=== PATIENT | male | born 1945 | race Two or more races ===

== ENCOUNTER 2017-11-05 09:51 | Outpatient (CLI) | payer OTHER ==
[~2017-11-05 09:51] MED LIST: TRAMADOL HCL-AP1 TAB PO
== END 2017-11-05 10:15 | disposition home or self-care (01) ==
LOC: LAB 09:51
DX: E04.8 Other specified nontoxic goiter (principal); E04.1 Nontoxic single thyroid nodule; E05.90 Thyrotoxicosis, unspecified without thyrotoxic crisis or storm; D68.0 Von Willebrand disease; D51.0 Vitamin B12 deficiency anemia due to intrinsic factor deficiency; D51.1 Vitamin B12 deficiency anemia due to selective vitamin B12 malabsorption with proteinuria; D68.8 Other specified coagulation defects; R63.4 Abnormal weight loss; D50.8 Other iron deficiency anemias; D51.8 Other vitamin B12 deficiency anemias; I10 Essential (primary) hypertension; E03.8 Other specified hypothyroidism

== ENCOUNTER 2018-01-12 10:45 | Outpatient (CLI) | payer OTHER | END 2018-01-12 10:50 | disposition home or self-care (01) | LOC: LAB 10:45 | DX: E05.90 Thyrotoxicosis, unspecified without thyrotoxic crisis or storm (principal); E04.8 Other specified nontoxic goiter; E04.1 Nontoxic single thyroid nodule ==

== ENCOUNTER 2018-01-30 08:20 | Outpatient (CLI) | payer OTHER | END 2018-01-30 09:00 | disposition home or self-care (01) | LOC: NUCLEAR 08:20 | DX: E05.80 Other thyrotoxicosis without thyrotoxic crisis or storm (principal) | CPT/HCPCS: 78012; A9531 ==

== ENCOUNTER 2018-11-30 09:08 | Outpatient (CLI) | payer OTHER | END 2018-11-30 11:28 | disposition home or self-care (01) | LOC: LAB 09:08 | DX: E05.90 Thyrotoxicosis, unspecified without thyrotoxic crisis or storm (principal); E04.1 Nontoxic single thyroid nodule; E04.8 Other specified nontoxic goiter; D68.0 Von Willebrand disease; D51.0 Vitamin B12 deficiency anemia due to intrinsic factor deficiency; D51.1 Vitamin B12 deficiency anemia due to selective vitamin B12 malabsorption with proteinuria; D68.8 Other specified coagulation defects; N40.1 Benign prostatic hyperplasia with lower urinary tract symptoms; R63.4 Abnormal weight loss; E06.5 Other chronic thyroiditis; D50.8 Other iron deficiency anemias; D51.8 Other vitamin B12 deficiency anemias; I10 Essential (primary) hypertension; E03.8 Other specified hypothyroidism ==

== ENCOUNTER 2019-04-04 08:03 | Outpatient (CLI) | payer OTHER | END 2019-04-04 08:09 | disposition home or self-care (01) | LOC: LAB 08:03 | DX: D51.0 Vitamin B12 deficiency anemia due to intrinsic factor deficiency (principal); D68.0 Von Willebrand disease; D51.1 Vitamin B12 deficiency anemia due to selective vitamin B12 malabsorption with proteinuria; E05.90 Thyrotoxicosis, unspecified without thyrotoxic crisis or storm; E04.1 Nontoxic single thyroid nodule; D68.8 Other specified coagulation defects; N40.1 Benign prostatic hyperplasia with lower urinary tract symptoms; R63.4 Abnormal weight loss; E06.5 Other chronic thyroiditis; R97.0 Elevated carcinoembryonic antigen [CEA] ==

== ENCOUNTER 2019-08-01 09:20 | Outpatient (CLI) | payer OTHER | END 2019-08-01 09:30 | disposition home or self-care (01) | LOC: LAB 09:20 | DX: D50.8 Other iron deficiency anemias (principal); E03.8 Other specified hypothyroidism; E78.2 Mixed hyperlipidemia; I11.9 Hypertensive heart disease without heart failure; E56.8 Deficiency of other vitamins; N39.0 Urinary tract infection, site not specified; Z12.11 Encounter for screening for malignant neoplasm of colon; E55.9 Vitamin D deficiency, unspecified; N19 Unspecified kidney failure; E11.9 Type 2 diabetes mellitus without complications; R80.8 Other proteinuria; C18.0 Malignant neoplasm of cecum; K92.1 Melena; E05.90 Thyrotoxicosis, unspecified without thyrotoxic crisis or storm; E04.8 Other specified nontoxic goiter; D68.0 Von Willebrand disease; D51.0 Vitamin B12 deficiency anemia due to intrinsic factor deficiency; D51.1 Vitamin B12 deficiency anemia due to selective vitamin B12 malabsorption with proteinuria; E04.1 Nontoxic single thyroid nodule; D68.8 Other specified coagulation defects; N40.1 Benign prostatic hyperplasia with lower urinary tract symptoms; R63.4 Abnormal weight loss; E06.4 Drug-induced thyroiditis; E06.5 Other chronic thyroiditis; K90.89 Other intestinal malabsorption ==

== ENCOUNTER → 2020-01-15 10:16 | Outpatient (CLI) | payer OTHER | END | disposition home or self-care (01) | LOC: LAB 10:16 | DX: D68.0 Von Willebrand disease (principal); I10 Essential (primary) hypertension; D68.8 Other specified coagulation defects; R97.0 Elevated carcinoembryonic antigen [CEA]; R97.8 Other abnormal tumor markers; R97.20 Elevated prostate specific antigen [PSA]; D50.8 Other iron deficiency anemias; D51.0 Vitamin B12 deficiency anemia due to intrinsic factor deficiency; D51.1 Vitamin B12 deficiency anemia due to selective vitamin B12 malabsorption with proteinuria; E05.90 Thyrotoxicosis, unspecified without thyrotoxic crisis or storm; E04.1 Nontoxic single thyroid nodule; N40.1 Benign prostatic hyperplasia with lower urinary tract symptoms; R63.4 Abnormal weight loss; E06.5 Other chronic thyroiditis ==

== ENCOUNTER 2020-01-31 09:46 | Outpatient (CLI) | payer OTHER | END 2020-01-31 09:57 | disposition home or self-care (01) | LOC: LAB 09:46 | PROVIDERS: ATTEND Internal Medicine Geriatric Medicine | DX: D50.8 Other iron deficiency anemias (principal); E03.8 Other specified hypothyroidism; E78.2 Mixed hyperlipidemia; I11.9 Hypertensive heart disease without heart failure; E56.8 Deficiency of other vitamins; N39.0 Urinary tract infection, site not specified; Z12.11 Encounter for screening for malignant neoplasm of colon; E55.9 Vitamin D deficiency, unspecified; E11.9 Type 2 diabetes mellitus without complications; R80.8 Other proteinuria; C18.0 Malignant neoplasm of cecum; N19 Unspecified kidney failure; R19.5 Other fecal abnormalities ==

== ENCOUNTER 2020-02-01 10:11 | Outpatient (CLI) | payer OTHER | END 2020-02-01 15:00 | disposition home or self-care (01) | LOC: LAB 10:11 | PROVIDERS: ATTEND Internal Medicine Geriatric Medicine | DX: D50.8 Other iron deficiency anemias (principal); E03.8 Other specified hypothyroidism; E78.2 Mixed hyperlipidemia; I11.9 Hypertensive heart disease without heart failure; E56.8 Deficiency of other vitamins; N39.0 Urinary tract infection, site not specified; Z12.11 Encounter for screening for malignant neoplasm of colon; E55.9 Vitamin D deficiency, unspecified; N19 Unspecified kidney failure; E11.9 Type 2 diabetes mellitus without complications; R80.8 Other proteinuria; K92.1 Melena ==

== ENCOUNTER → 2020-05-20 08:29 | Outpatient (CLI) | payer OTHER | END | disposition home or self-care (01) | LOC: LAB 08:29 | PROVIDERS: ATTEND Internal Medicine Geriatric Medicine | DX: D50.8 Other iron deficiency anemias (principal); E03.8 Other specified hypothyroidism; E78.2 Mixed hyperlipidemia; I11.9 Hypertensive heart disease without heart failure; E56.8 Deficiency of other vitamins; N39.0 Urinary tract infection, site not specified; Z12.11 Encounter for screening for malignant neoplasm of colon; E55.9 Vitamin D deficiency, unspecified; N19 Unspecified kidney failure; E11.9 Type 2 diabetes mellitus without complications; R80.8 Other proteinuria; K92.1 Melena ==

== ENCOUNTER → 2020-07-14 15:46 | Outpatient (CLI) | payer OTHER | END | disposition home or self-care (01) | LOC: LAB 15:46 | PROVIDERS: ATTEND Internal Medicine Geriatric Medicine | DX: D50.8 Other iron deficiency anemias (principal); E56.8 Deficiency of other vitamins; Z20.828 Contact with and (suspected) exposure to other viral communicable diseases; Z03.818 Encounter for observation for suspected exposure to other biological agents ruled out; Z11.59 Encounter for screening for other viral diseases; E03.8 Other specified hypothyroidism; E78.2 Mixed hyperlipidemia; I11.9 Hypertensive heart disease without heart failure; N39.0 Urinary tract infection, site not specified; Z12.11 Encounter for screening for malignant neoplasm of colon; E55.9 Vitamin D deficiency, unspecified; N19 Unspecified kidney failure; E11.9 Type 2 diabetes mellitus without complications; R80.8 Other proteinuria; C18.0 Malignant neoplasm of cecum; K92.1 Melena ==

== ENCOUNTER 2020-09-01 10:17 | Outpatient (CLI) | payer OTHER | END 2020-09-01 11:17 | disposition home or self-care (01) | LOC: LAB 10:17 | PROVIDERS: ATTEND Internal Medicine Hematology & Oncology | DX: D50.8 Other iron deficiency anemias (principal); I10 Essential (primary) hypertension; D51.8 Other vitamin B12 deficiency anemias; E55.9 Vitamin D deficiency, unspecified; E03.8 Other specified hypothyroidism; D68.8 Other specified coagulation defects; R97.0 Elevated carcinoembryonic antigen [CEA]; R97.8 Other abnormal tumor markers; D68.0 Von Willebrand disease; D51.0 Vitamin B12 deficiency anemia due to intrinsic factor deficiency; D51.1 Vitamin B12 deficiency anemia due to selective vitamin B12 malabsorption with proteinuria; E05.90 Thyrotoxicosis, unspecified without thyrotoxic crisis or storm; E04.1 Nontoxic single thyroid nodule; N40.1 Benign prostatic hyperplasia with lower urinary tract symptoms; R63.4 Abnormal weight loss; E06.5 Other chronic thyroiditis; R97.20 Elevated prostate specific antigen [PSA] ==

== ENCOUNTER 2020-11-24 07:09 | Outpatient (CLI) | payer OTHER | END 2020-11-24 07:16 | disposition home or self-care (01) | LOC: SONOGRAMA 07:09 → MAMO-SONO 07:15 → SONOGRAMA 07:16 | PROVIDERS: ATTEND Internal Medicine Gastroenterology | DX: R10.13 Epigastric pain (principal); Q61.00 Congenital renal cyst, unspecified; D51.8 Other vitamin B12 deficiency anemias ==

== ENCOUNTER 2021-01-31 07:46 | Outpatient (CLI) | payer OTHER | END 2021-01-31 08:19 | disposition home or self-care (01) | LOC: LAB 07:46 | PROVIDERS: ATTEND Internal Medicine Hematology & Oncology | DX: D50.8 Other iron deficiency anemias (principal); N40.1 Benign prostatic hyperplasia with lower urinary tract symptoms; D51.0 Vitamin B12 deficiency anemia due to intrinsic factor deficiency; D51.1 Vitamin B12 deficiency anemia due to selective vitamin B12 malabsorption with proteinuria; E55.9 Vitamin D deficiency, unspecified; E03.8 Other specified hypothyroidism; D68.0 Von Willebrand disease; R97.0 Elevated carcinoembryonic antigen [CEA]; R97.20 Elevated prostate specific antigen [PSA]; R63.4 Abnormal weight loss; E05.90 Thyrotoxicosis, unspecified without thyrotoxic crisis or storm; E04.1 Nontoxic single thyroid nodule; E06.5 Other chronic thyroiditis ==

== ENCOUNTER → 2021-04-06 09:52 | Outpatient (CLI) | payer OTHER | END | disposition home or self-care (01) | LOC: LAB 09:52 | PROVIDERS: ATTEND Internal Medicine Geriatric Medicine | DX: D50.8 Other iron deficiency anemias (principal); E03.8 Other specified hypothyroidism; E78.2 Mixed hyperlipidemia; I11.9 Hypertensive heart disease without heart failure; E56.8 Deficiency of other vitamins; N39.0 Urinary tract infection, site not specified; Z12.11 Encounter for screening for malignant neoplasm of colon; E55.9 Vitamin D deficiency, unspecified; N19 Unspecified kidney failure; E11.9 Type 2 diabetes mellitus without complications; R80.8 Other proteinuria; K92.1 Melena ==

== ENCOUNTER → 2021-07-07 | Outpatient (CLI) | payer OTHER | END | disposition home or self-care (01) | LOC: NUCLEAR 07:00 | PROVIDERS: ATTEND Internal Medicine Cardiovascular Disease | DX: I50.1 Left ventricular failure, unspecified (principal); I25.9 Chronic ischemic heart disease, unspecified | CPT/HCPCS: 78452; 93017; A9500 ==

== ENCOUNTER → 2021-07-09 09:16 | Outpatient (CLI) | payer OTHER | END | disposition home or self-care (01) | LOC: LAB 09:16 | PROVIDERS: ATTEND Internal Medicine Hematology & Oncology | DX: D50.8 Other iron deficiency anemias (principal); R79.89 Other specified abnormal findings of blood chemistry; I10 Essential (primary) hypertension; R74.02 Elevation of levels of lactic acid dehydrogenase [LDH]; K76.89 Other specified diseases of liver; D51.8 Other vitamin B12 deficiency anemias; E55.9 Vitamin D deficiency, unspecified; E03.8 Other specified hypothyroidism; D68.8 Other specified coagulation defects; R97.0 Elevated carcinoembryonic antigen [CEA]; R97.8 Other abnormal tumor markers; R97.20 Elevated prostate specific antigen [PSA]; D68.0 Von Willebrand disease; D51.0 Vitamin B12 deficiency anemia due to intrinsic factor deficiency; D51.1 Vitamin B12 deficiency anemia due to selective vitamin B12 malabsorption with proteinuria; E05.90 Thyrotoxicosis, unspecified without thyrotoxic crisis or storm; E04.1 Nontoxic single thyroid nodule; N40.1 Benign prostatic hyperplasia with lower urinary tract symptoms; R63.4 Abnormal weight loss; E06.5 Other chronic thyroiditis; E78.2 Mixed hyperlipidemia; E56.8 Deficiency of other vitamins; N39.0 Urinary tract infection, site not specified; Z12.11 Encounter for screening for malignant neoplasm of colon; N28.89 Other specified disorders of kidney and ureter; K92.1 Melena; C18.8 Malignant neoplasm of overlapping sites of colon; R80.8 Other proteinuria ==

== ENCOUNTER 2021-11-17 10:50 | Outpatient (CLI) | payer OTHER | END 2021-11-17 10:54 | disposition home or self-care (01) | LOC: LAB 10:50 | PROVIDERS: ATTEND Internal Medicine Geriatric Medicine | DX: E03.9 Hypothyroidism, unspecified (principal); E05.90 Thyrotoxicosis, unspecified without thyrotoxic crisis or storm; E04.9 Nontoxic goiter, unspecified ==

== ENCOUNTER 2022-02-09 10:03 | Outpatient (CLI) | payer OTHER | END 2022-02-09 10:04 | disposition home or self-care (01) | LOC: LAB 10:03 | PROVIDERS: ATTEND Internal Medicine Hematology & Oncology | DX: D50.8 Other iron deficiency anemias (principal); R79.9 Abnormal finding of blood chemistry, unspecified; I10 Essential (primary) hypertension; R74.02 Elevation of levels of lactic acid dehydrogenase [LDH]; K76.89 Other specified diseases of liver; D51.8 Other vitamin B12 deficiency anemias; E55.9 Vitamin D deficiency, unspecified; E03.8 Other specified hypothyroidism; D68.8 Other specified coagulation defects; R97.0 Elevated carcinoembryonic antigen [CEA]; R97.8 Other abnormal tumor markers; R97.20 Elevated prostate specific antigen [PSA]; D68.0 Von Willebrand disease; D51.0 Vitamin B12 deficiency anemia due to intrinsic factor deficiency; D51.1 Vitamin B12 deficiency anemia due to selective vitamin B12 malabsorption with proteinuria; E05.90 Thyrotoxicosis, unspecified without thyrotoxic crisis or storm; E04.1 Nontoxic single thyroid nodule; D68.9 Coagulation defect, unspecified; N40.1 Benign prostatic hyperplasia with lower urinary tract symptoms; R63.4 Abnormal weight loss; E06.5 Other chronic thyroiditis; D53.8 Other specified nutritional anemias ==

== ENCOUNTER 2022-10-31 14:14 | Emergency (ER) | payer OTHER ==
[~2022-10-31] VITALS: Ht 177.8 cm; Wt 70.3 kg
[2022-10-31] MEDS ORDERED: ATORVASTATIN CA20 MG PO (14:16)
== END 2022-10-31 21:14 | disposition home or self-care (01) ==
LOC: ER 14:14
DX: R42 Dizziness and giddiness (principal); R41.82 Altered mental status, unspecified; N40.0 Benign prostatic hyperplasia without lower urinary tract symptoms; K21.9 Gastro-esophageal reflux disease without esophagitis

== ENCOUNTER 2024-12-31 09:55 | Outpatient (CLI) | payer OTHER ==
[~2024-12-31 09:55] MED LIST changes: +ATORVASTATIN CA20 MG PO
[2024-12-31 11:10] LABS: HEMATOCRIT 37.8 % (39.0-48.0); HEMOGLOBIN 12.3 g/dL (13-16.00); MEAN CELL VOLUME 76.5 fL (80.0-100.00); MEAN CORPUSCULAR HEMOGLOBIN 24.9 pg (27.00-32.0); MEAN CORPUSCULAR HGB CONC 32.5 g/dl (32.0-36.0); PLATELET COUNT 138 K/uL (150-450); RED BLOOD COUNT 4.94 M/uL (4.00-6.00); RED CELL DISTRIBUTION WIDTH 14.8 % (11.5-14.5)
[2024-12-31 11:36] LABS: INR 1.02; PARTIAL THROMBOPLASTIN TIME 31.7 SECONDS (22.0-34.0); PROTHROMBIN TIME 11.1 SECONDS (9.0-11.5)
[2024-12-31 11:39] LABS: COL EPI 136 SECONDS (82-175)
[2024-12-31 12:28] LABS: ALBUMIN 3.7 gm/dL (3.4-5.0); BILIRUBIN TOTAL 0.85 mg/dL (0.3-1.2); CALCIUM 9.4 mg/dL (8.5-10.1); CREATININE SERUM 1.35 mg/dL (0.70-1.30); GFR 50.98; GLOBULINA 3.2 G/DL (2.4-3.5); POTASSIUM 4.05 mEq/L (3.5-5.1); TOTAL PROTEIN 6.9 gm/dL (6.4-8.2)
[2024-12-31 13:30] LABS: FOLIC ACID 19.84 ng/ml (4.78-20)
[2025-01-01 08:20] LABS: MANUAL PLATELET COUNT 220
[2025-01-01 08:29] LABS: PLATELET ESTIMATE NORMAL (NORMAL)
[2025-01-02 13:08] LABS: FACTOR VIII ACTIVITY 94 % (56-140); VON WILLERBRAND ACTIVITY 73 % (50-200); VON WILLERBRAND ANTIGEN 107 % (50-200)
== END 2024-12-31 10:09 | disposition home or self-care (01) ==
LOC: LAB 09:55
PROVIDERS: ATTEND Internal Medicine Hematology & Oncology
DX: D68.01 Von Willebrand disease, type 1 (principal); D51.0 Vitamin B12 deficiency anemia due to intrinsic factor deficiency; D51.1 Vitamin B12 deficiency anemia due to selective vitamin B12 malabsorption with proteinuria; E05.90 Thyrotoxicosis, unspecified without thyrotoxic crisis or storm; E04.1 Nontoxic single thyroid nodule; D68.9 Coagulation defect, unspecified; N40.1 Benign prostatic hyperplasia with lower urinary tract symptoms; R63.4 Abnormal weight loss; E06.5 Other chronic thyroiditis; D53.8 Other specified nutritional anemias; D50.8 Other iron deficiency anemias; R79.9 Abnormal finding of blood chemistry, unspecified; I10 Essential (primary) hypertension; R74.02 Elevation of levels of lactic acid dehydrogenase [LDH]; K76.89 Other specified diseases of liver; D51.8 Other vitamin B12 deficiency anemias; D68.8 Other specified coagulation defects

== ENCOUNTER → 2025-07-09 10:47 | Outpatient (CLI) | payer OTHER ==
[2025-07-09 11:36] LABS: BASO % 0.7 % (0.1-1.2); EOS # 0.09 (0.04-0.54); EOS % 2.0 % (0.7-7.0); LYMPH # 0.85 (1.18-3.74); LYMPH % 18.9 % (19.3-53.1); MEAN PLATELET VOLUME 10.60 fl (9.4-12.4); MONO # 0.49 (0.24-0.82); MONO % 10.9 % (4.7-12.5); NEUT # 3.02 (1.56-6.13); NEUT % 67.1 % (34.0-71.1); RED CELL DISTRIBUTION WIDTH 14.1 % (11.6-14.4)
[2025-07-09 12:08] LABS: COL EPI 109 SECONDS (82-175)
[2025-07-09 12:11] LABS: INR 1.05
[2025-07-09 12:18] LABS: ALT/SGPT 20.0 U/L (12-78); AST/SGOT 19.0 U/L (15-37); BILIRUBIN TOTAL 0.91 mg/dL (0.3-1.2); BUN CREA RATIO 22.0 (7.0-25.0); CREATININE SERUM 1.16 mg/dL (0.70-1.30); FE 81.0 ug/dl (65-175); GFR 60.73; GLOBULINA 3.2 G/DL (2.4-3.5); GLUCOSE FASTING 76.0 mg/dL (65-100); LDH 208.0 U/L (87-241); OSMOLALITY SERUM 286.0 MOSM/KG (275-295)
[2025-07-09 13:00] LABS: FOLIC ACID > 20.00 ng/ml (4.78-20); VITAMIN D3 25 HYDROXY 44.47 ng/ml (30-120)
[2025-07-11 14:07] LABS: FACTOR VIII ACTIVITY 99 % (56-140); VON WILLERBRAND ACTIVITY 103 % (50-200); VON WILLERBRAND ANTIGEN 106 % (50-200)
== END | disposition home or self-care (01) ==
LOC: LAB 10:47
PROVIDERS: ATTEND Internal Medicine Hematology & Oncology
DX: D50.8 Other iron deficiency anemias (principal); D51.0 Vitamin B12 deficiency anemia due to intrinsic factor deficiency; D51.1 Vitamin B12 deficiency anemia due to selective vitamin B12 malabsorption with proteinuria; E05.90 Thyrotoxicosis, unspecified without thyrotoxic crisis or storm; E04.1 Nontoxic single thyroid nodule; D68.9 Coagulation defect, unspecified; N40.1 Benign prostatic hyperplasia with lower urinary tract symptoms; R63.4 Abnormal weight loss; E06.5 Other chronic thyroiditis; D53.8 Other specified nutritional anemias; R79.9 Abnormal finding of blood chemistry, unspecified; I10 Essential (primary) hypertension; R74.02 Elevation of levels of lactic acid dehydrogenase [LDH]; K76.89 Other specified diseases of liver; D68.8 Other specified coagulation defects; E55.9 Vitamin D deficiency, unspecified